=== PATIENT | male | born 1965 | race Caucasian/White ===

== ENCOUNTER 2018-12-29 17:31 | Emergency (ER) | payer OTHER ==
[~2018-12-29] VITALS: Ht 167.6 cm; Wt 95.3 kg
[~2018-12-29 17:31] MED LIST: ACETAMINOPHEN325 M1 PO; ACID REFLUX MED; NOHOMEMEDICATIONS; PERCOCET 5-3251 EACH PO
[2018-12-29] MEDS ORDERED: HYDROCHLOROTHIA25 M1 PO (17:45)
[2018-12-29] MEDS ORDERED: LOSARTAN POTAS100 MG PO (17:45)
[2018-12-29] MEDS ORDERED: FLEXERIL PO (18:55)
[2018-12-29] MEDS ORDERED: NORCO 5-325 TA1 EAC1 PO (18:55)
[2018-12-29] MEDS ORDERED: PERCOCET 7.5-31 EACH PO (19:29)
[2018-12-29] MEDS ORDERED: ZOFRAN ODT4 MG PO (19:29)
[2018-12-29 20:24] VITALS: BP 142/86
== END 2018-12-29 20:25 | disposition home or self-care (01) ==
LOC: M.ERS 17:31
DX: M54.5 Low back pain (principal); M54.6 Pain in thoracic spine; R07.81 Pleurodynia; M25.551 Pain in right hip; Z90.49 Acquired absence of other specified parts of digestive tract; W11.XXXA Fall on and from ladder, initial encounter; Y93.89 Activity, other specified; Y92.89 Other specified places as the place of occurrence of the external cause; Y99.8 Other external cause status